=== PATIENT | female | born 1940 | race Caucasian/White ===

== ENCOUNTER → 2017-01-22 | Outpatient (CLI) | payer OTHER ==
[~2017-01-22] MED LIST: ENDOCET 5-3251 EACH PO; EVISTA60 M1 PO; MULTI-DAY VITAM1 TAB PO; NATURAL VITA100 UNIT PO; OYSTER SHELL C500 MG PO; ZOCOR20 MG PO; [UNRECOGNIZED DRUG - OTHER] PO
--- NOTE | ~2017-01-22 | MY29 ---
[facility] A Service of [facility] RADIOLOGY TEXT RESULTS PATIENT: CHET MCGEE LOCATION: [facility] : 40 UNIT #: [id number] AGE: [address]: Ramiro Tubbs MD SEX: F ORDER DR: [id number] [facility] [address] [place], [place] [address] [id number] O MR#: [id number] Acc #: [id number] NAME: CHET MCGEE : 1940 SEX: F STUDY DATE/TIME: 01/22/2017 11:07 UNIT: [facility] ROOM: STUDY DESCRIPTION: MY KETAN SCREENING W/ CAD BILAT Attending Physician: Ramiro Tubbs Jr., M.D. Referring Physician: Ramiro Tubbs Jr., M.D. Ordering Physician: Ramiro Tubbs Jr., M.D. Primary Care Physician: Ramiro Tubbs Jr., M.D. MEDICAL IMAGING REPORT This report is preliminary unless electronic signature is present EXAM Digital screening mammogram 01/22/2017, [facility] HISTORY 76-year-old woman positive family history, daughter premenopausal, prior bilateral excisional breast biopsies. Annual screen COMPARISON Mammograms date to 11/01/2005 with most recent 01/21/2016 FINDINGS Digital imaging of each breast was completed utilizing screening protocol. Biopsy skin markers were placed on each breast. Review includes FDA-approved CAD device. The breast parenchyma remains moderately dense with a small nodular parenchymal pattern and subareolar duct prominence bilaterally. Occasional coarse calcification noted in each breast. I see no interval occurring breast mass. There are no suspicious microcalcifications and no architectural deformity. IMPRESSION Stable benign mammogram. Annual screening recommended. Patient's over the age of 40 are entered into a reminder system with target due date for the next mammogram. A result letter will be sent to the patient. BIRADS: 2 Benign findings. Dictated by... James Renae M.D. THIS IS AN ELECTRONICALLY VERIFIED REPORT [facility] A Service of [facility] RADIOLOGY TEXT RESULTS PATIENT: CHET MCGEE LOCATION: [facility] : 40 UNIT #: [id number] AGE: [address]: Ramiro Tubbs MD SEX: F ORDER DR: James Renae M.D. at 01/23/2017 8:11 AM JBB/ruddy TD: 01/22/2017 17:49 JOB #: [id number] MEDICAL IMAGING REPORT Page 1 of 1 COPY
== END | disposition home or self-care (01) ==
LOC: CWCC 10:30
DX: Z12.31 Encounter for screening mammogram for malignant neoplasm of breast (principal); Z80.3 Family history of malignant neoplasm of breast; Z98.890 Other specified postprocedural states
CPT/HCPCS: G0202

== ENCOUNTER 2017-02-12 16:56 | Emergency (ER) | payer OTHER ==
[~2017-02-12] VITALS: Ht 162.6 cm; Wt 66.7 kg
--- NOTE | ~2017-02-12 | CR278 ---
[facility] A Service of [facility] RADIOLOGY TEXT RESULTS PATIENT: CHET MCGEE LOCATION: [facility] : 40 UNIT #: [id number] AGE: [address]: Grant Colin MD SEX: F ORDER DR: [id number] [facility] [address] [place], [place] [address] [id number] E MR#: [id number] Acc #: [id number] NAME: CHET MCGEE : 1940 SEX: F STUDY DATE/TIME: 02/12/2017 18:45 UNIT: [facility] ROOM: STUDY DESCRIPTION: CR Wrist 2 View Lt Attending Physician: Grant Colin M.D. Ordering Physician: Grant Colin M.D. Primary Care Physician: Ramiro Tubbs Jr., M.D. MEDICAL IMAGING REPORT This report is preliminary unless electronic signature is present EXAM Left wrist 2 views HISTORY Wrist pain after fall today. FINDINGS Two views of the left wrist demonstrate comminuted primarily transverse fracture of the distal radial metaphysis with fracture extension into the distal radioulnar joint and probably extending into the radiocarpal joint. 11 mm posterior displacement and approximately 10 mm lateral displacement of the dominant distal radial fracture fragment. There is also 40 degrees posterior angulation of the distal radial fracture fragment. Fracture through the base of the ulnar styloid process with up to 6 mm separation of the fracture fragments. Soft tissue swelling about the distal forearm and wrist. 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 Dictated by... Wilfrid Vasques M.D. THIS IS AN ELECTRONICALLY VERIFIED REPORT Wilfrid Vasques M.D. at 02/13/2017 11:43 PM MARIA L/nuria TD: 02/13/2017 08:12 JOB #: [id number] MEDICAL IMAGING REPORT Page 1 of 1 COPY
--- NOTE | ~2017-02-12 | CR138 ---
[facility] A Service of [facility] & [facility] RADIOLOGY TEXT RESULTS PATIENT: CHET MCGEE LOCATION: [facility] : 40 UNIT #: [id number] AGE: [address]: Grant Colin MD SEX: F ORDER DR: [id number] [facility] [address] [place], [place] [address] [id number] E MR#: [id number] Acc #: [id number] NAME: CHET MCGEE : 1940 SEX: F STUDY DATE/TIME: 02/12/2017 18:44 UNIT: [facility] ROOM: STUDY DESCRIPTION: CR Hand 2 Views Lt Attending Physician: Grant Colin M.D. Ordering Physician: Grant Colin M.D. Primary Care Physician: Ramiro Tubbs Jr., M.D. MEDICAL IMAGING REPORT This report is preliminary unless electronic signature is present EXAM Left hand, 2 views. HISTORY Pain and swelling after fall today. FINDINGS Two views of the left wrist demonstrate comminuted predominately transverse fracture of the distal radial metaphysis extending into the distal radioulnar joint and probably extending into the radiocarpal joint. There is 11 mm posterior displacement of the dominant distal fracture fragment and approximately 1 cm lateral displacement of the dominant fragment. There is also close to 40 degrees posterior angulation of the dominant distal radial fracture fragment. There is a fracture through the base of the ulnar styloid process with up to 6 mm separation of the fracture fragments. Soft tissue swelling about the wrist. Severe degenerative arthritis at the first CMC joint. Dictated by... Wilfrid Vasques M.D. THIS IS AN ELECTRONICALLY VERIFIED REPORT Wilfrid Vasques M.D. at 02/13/2017 11:43 PM DFL/salina TD: 02/13/2017 08:07 JOB #: [id number] MEDICAL IMAGING REPORT Page 1 of 1 COPY
--- NOTE | ~2017-02-12 | CR20 ---
[facility] A Service of [facility] & [facility] RADIOLOGY TEXT RESULTS PATIENT: CHET MCGEE LOCATION: [facility] : 40 UNIT #: [id number] AGE: [address]: Grant Colin MD SEX: F ORDER DR: [id number] [facility] [address] [place], [place] [address] [id number] E MR#: [id number] Acc #: [id number] NAME: CHET MCGEE : 1940 SEX: F STUDY DATE/TIME: 02/12/2017 18:41 UNIT: [facility] ROOM: STUDY DESCRIPTION: CR Ankle Min 3 Views Lt Attending Physician: Grant Colin M.D. Ordering Physician: Grant Colin M.D. Primary Care Physician: Ramiro Tubbs Jr., M.D. MEDICAL IMAGING REPORT This report is preliminary unless electronic signature is present EXAM Left ankle, 3 views. HISTORY Ankle pain and bruising after fall today. FINDINGS Three views of left ankle demonstrate approximately 8 mm irregular calcification adjacent to the tip of the lateral malleolus. This is concerning for an avulsion fracture and this could be recent. A portion of the apparent fracture line is well marginated suggesting possible remote trauma. Moderate overlying soft tissue swelling over the lateral ankle. Bone alignment is otherwise normal. No joint space narrowing. No dislocation. Dictated by... Wilfrid Vasques M.D. THIS IS AN ELECTRONICALLY VERIFIED REPORT Wilfrid Vasques M.D. at 02/13/2017 11:43 PM DFL/salina TD: 02/13/2017 08:04 JOB #: [id number] MEDICAL IMAGING REPORT Page 1 of 1 COPY
[~2017-02-12 16:56] MED LIST changes: -ENDOCET 5-3251 EACH PO
[2017-02-14] MEDS ORDERED: ENDOCET 5-3251 EACH PO (11:03)
== END 2017-02-12 20:09 | disposition home or self-care (01) ==
LOC: CED 16:56
DX: S52.502A Unspecified fracture of the lower end of left radius, initial encounter for closed fracture (principal); S52.612A Displaced fracture of left ulna styloid process, initial encounter for closed fracture; S82.62XA Displaced fracture of lateral malleolus of left fibula, initial encounter for closed fracture; S63.251A Unspecified dislocation of left index finger, initial encounter; Z79.899 Other long term (current) drug therapy; X50.1XXA Overexertion from prolonged static or awkward postures, initial encounter; Y92.009 Unspecified place in unspecified non-institutional (private) residence as the place of occurrence of the external cause
CPT/HCPCS: 73100; 73120; 73610; 96374; 96375; 96376; 99283; J2270; J2405

== ENCOUNTER → 2017-02-14 | Day surgery (SDC) | payer MEDICARE ==
[~2017-02-14] MED LIST changes: +ENDOCET 5-3251 EACH PO
--- NOTE | ~2017-02-14 | EKG ---
PATIENT: CHET MCGEE UNIT #: [id number] Ventricular Rate: 90 BPM Atrial Rate: 90 BPM P-R Interval: 146 ms QRS Duration: 80 ms Q-T Interval: 362 ms QTC Calculation(Bezet): 442 ms Calculated R Buchanan: -17 degrees Calculated T Buchanan: 121 degrees Diagnosis Line: Sinus rhythm Diagnosis Line: Normal ecg Diagnosis Line: No previous ECGs available Diagnosis Line: Confirmed by ISAAC ROTHMAN MD ([id number]) on Diagnosis Line: 02/14/2017 10:45:59 PM INTERPRETING MD: SAVANNAH
--- NOTE | ~2017-02-14 | OR ---
Unit #: [id number] #: [id number] Patient: CHET HURST [id number] [address] [address] [id number] O MR#: [id number] NAME: CHET HURST ROOM: Date of Procedure: 02/14/2017 Admission Date: 02/14/2017 Surgeon: Grayson Sánchez M.D. : 1940 Attending Physician: Grayson Sánchez M.D. Primary Care Physician: Ramiro Tubbs Jr., M.D. OPERATIVE REPORT PREOPERATIVE DIAGNOSIS Left intra-articular distal radius fracture. POSTOPERATIVE DIAGNOSIS Left intra-articular distal radius fracture. PROCEDURE PERFORMED Open reduction and internal fixation of left distal radius fracture, 3 intra-articular fragments. IMPLANTS [employer] Crosslock distal radius plate, standard width and length. CERTIFIED CYTOTECHNOLOGIST Alba Desai. ANESTHESIA General. ESTIMATED BLOOD LOSS 10 mL. COMPLICATIONS None apparent. DRAINS None. INDICATIONS FOR PROCEDURE Ms. Hurst is a 76-year-old female with a comminuted intra-articular displaced distal radius fracture. The fracture was highly displaced with the distal segment translated such that the volar cortex was perched on the posterior dorsal cortex of the intact shaft segment. She underwent a closed reduction in the emergency department which afforded her some increase in length, but is still showing an inadequate reduction. We discussed operative intervention in the form of a volar plating. The nature of the surgery was reviewed with the patient and family as well as risks, benefits, and alternatives. She elected to proceed. DESCRIPTION OF PROCEDURE The patient was identified in the preoperative holding area. The operative site was marked. Preoperative antibiotics were administered. Unit #: [id number] #: [id number] Patient: CHET HURST The patient was brought to the operating room and placed supine on the operating table. A general anesthetic was induced. The left arm was placed on a radiolucent hand table. A tourniquet was applied to the left humerus. The arm was exsanguinated and the tourniquet inflated. An incision was made over the FCR tendon. Dissection was carried down to the tendon itself. The tendon was mobilized in an ulnar direction. Dissection was carried through the floor of the FCR. The underlying FPL was identified and mobilized ulnarly as well. The pronator quadratus was then elevated and again mobilized in an ulnar direction. The distal extent of the shaft was identified. This was significantly displaced in a volar position relative to the distal segment. Again, the volar cortex of the distal segment was perched on the posterior cortex of the shaft. This was reduced with a Emeigh elevator. There was a separate radial styloid fragment which was intra-articular in nature. There was a separate central articular fragment as well which was elevated with a Emeigh elevator through the fracture. Once we had this adequately reduced, we then applied the plate and performed initial fixation through the oblong hole. The plate was then translated distally until the desired position was achieved. This was confirmed under C-arm imaging with the K-wire through the distal holes of the plate. We then held the fracture in reduced position and the fixation proceeded distally with smooth locking pegs. We placed the proximal row followed by the distal row of all smooth locking pegs. Lastly, we placed the ulnar styloid peg. Multiple images were obtained into the C-arm image intensifier to confirm that there was no intra-articular penetration of hardware. The proximal shaft screws were then placed. We placed two additional screws in the shaft and then nonlocking screw holes. The oblong screw hole did lose purchase and was therefore removed. We placed a locking screw through one of the locking cross lock holes. The wrist was taken through range of motion. The fracture was stable. The tourniquet was deflated. Hemostasis was achieved with a combination of bipolar and Bovie electrocautery. The wound was then irrigated with saline via bulb lavage. The wound was then closed with 2-0 Vicryl and 3-0 nylon. The patient was placed in a well-padded volar splint. DISPOSITION Stable to the recovery room. Dictated by... Lupe Harding/johnnie TD: 02/14/2017 18:32 JOB #: [id number] Unit #: [id number] #: [id number] Patient: CHET HURST OPERATIVE REPORT Page 1 of 1 X Grayson Sánchez MD PROCEDURE OPERATIVE NOTE
--- NOTE | ~2017-02-14 | CR278 ---
[facility] A Service of [facility] & [facility] RADIOLOGY TEXT RESULTS PATIENT: CHET MCGEE LOCATION: [facility] : 40 UNIT #: [id number] AGE: [address]: Grayson Sánchez MD SEX: F ORDER DR: [id number] [facility] [address] [place], [place] [address] [id number] O MR#: [id number] Acc #: [id number] NAME: CHET MCGEE : 1940 SEX: F STUDY DATE/TIME: 02/14/2017 16:21 UNIT: [facility] ROOM: STUDY DESCRIPTION: CR Wrist 2 View Lt Attending Physician: Grayson Sánchez M.D. Ordering Physician: Grayson Sánchez M.D. Primary Care Physician: Ramiro Tubbs Jr., M.D. MEDICAL IMAGING REPORT This report is preliminary unless electronic signature is present EXAM ORIF left wrist HISTORY Intraoperative fluoroscopic images obtained by Dr. Sánchez. FINDINGS 7 fluoroscopic images are submitted for retrospective review obtained 04:21 to 04:49 p.m. 02/14/[address] Sánchez. A total of 1 minute and 10 seconds of fluoroscopy time utilized. Images were obtained during placement of side place with screws to fracture of the distal radius. IMPRESSION 7 fluoroscopic images obtained intraoperatively by Dr. Sánchez submitted for retrospective review. 1 minute 10 seconds fluoroscopy time utilized. Dictated by... Isabela Buck M.D. THIS IS AN ELECTRONICALLY VERIFIED REPORT Isabela Buck M.D. at 02/15/2017 2:31 PM JORDYN/sofia TD: 02/14/2017 23:05 JOB #: [id number] MEDICAL IMAGING REPORT Page 1 of 1 COPY
== END | disposition home or self-care (01) ==
LOC: CSUR 10:47
DX: S52.572A Other intraarticular fracture of lower end of left radius, initial encounter for closed fracture (principal)
CPT/HCPCS: 73100; 76000; 93005; C1713; J0690; J2250; J2405; J2795; J3010